=== PATIENT | female | born 1955 | race Caucasian/White ===

== ENCOUNTER → 2016-11-26 | Outpatient (CLI) | payer OTHER ==
--- NOTE | 2016-11-26 16:25 | RAD ---
DATE: 11/26/2016 EXAM: MAMMO STACIE SCREENING BILATERAL HISTORY: 8 cm screening mammogram. COMPARISON: 05/01/2015, 10/30/2014, 10/04/1713 This study was interpreted with the benefit of Computerized Aided Detection (CAD). The breast parenchyma shows scattered fibroglandular densities. Breast parenchyma level B. FINDINGS: Bilateral CC and MLO views as well as tomosynthesis was performed. There are no suspicious microcalcifications, masses or areas of architectural distortion. Findings are stable from the prior mammogram. IMPRESSION: Negative bilateral mammogram. BI-RADS CATEGORY: 1 NEGATIVE RECOMMENDED FOLLOW-UP: 12M 12 MONTH FOLLOW-UP PQRS compliance statement: Patient information was entered into a reminder system with a target due date 11/26/2017 for the next mammogram. Mammography is a sensitive method for finding small breast cancers, but it does not detect them all and is not a substitute for careful clinical examination. A negative mammogram does not negate a clinically suspicious finding and should not result in delay in biopsying a clinically suspicious abnormality. "Our facility is accredited by the [employer] Mammography [employer]."
== END | disposition home or self-care (01) ==
LOC: MAMMO 07:52
PROVIDERS: ATTEND Physician Assistant
DX: Z12.31 Encounter for screening mammogram for malignant neoplasm of breast (principal)
CPT/HCPCS: 77063; G0202; 77067

== ENCOUNTER → 2017-10-21 | Outpatient (CLI) | payer OTHER ==
--- NOTE | 2017-10-21 09:25 | RAD ---
Examination: Right Lower Extremity Venous Doppler Ultrasound History: Right leg swelling, pain Comparison: None Procedure: Martínez scale, color flow 2D and spectal waveform analysis images are obtained with and without compression in the area of the common femoral vein, superficial femoral vein - femoral vein junction, main femoral vein (superficial femoral vein) and popliteal vein. Veins of the proximal calf are also imaged. Findings: There is normal duplex flow, color flow and compressibility of all visualized vein segments. No evidence of deep venous thrombus is present. No obvious popliteal cyst. Impression: No evidence of DVT. Electronically signed by: Wallace Obando MD (10/21/2017 9:22 AM) [id number]
== END | disposition home or self-care (01) ==
LOC: PMG 08:47
PROVIDERS: ATTEND Physician Assistant Medical
DX: M25.461 Effusion, right knee (principal); M79.89 Other specified soft tissue disorders
CPT/HCPCS: 93971

== ENCOUNTER → 2018-01-12 | Outpatient (CLI) | payer OTHER ==
--- NOTE | 2018-01-12 14:12 | RAD ---
DATE: 01/12/2018 EXAM: MAMMO STACIE SCREENING BILATERAL HISTORY: Routine screening COMPARISON: 11/26/2016 This study was interpreted with the benefit of Computerized Aided Detection (CAD). The breast parenchyma shows scattered fibroglandular densities. Breast parenchyma level B. FINDINGS: 2-D and 3-D tomosynthesis imaging was performed in CC and MLO projections. There is a small irregular elongated opacity in the inferior lateral aspect of the right breast as seen on CC stacie image #5, which was not evident on the previous study. It is also visible on right oblique tomosynthesis image #5. It lies approximately 4 cm from the nipple. No other new or enlarging breast densities are seen. Benign type calcifications are noted. No suspicious microcalcifications are evident. IMPRESSION: New small right lateral breast density as described above. Sonographic evaluation is suggested. BI-RADS CATEGORY: 0 INCOMPLETE: NEEDS ADDITIONAL IMAGING EVALUATION AND/OR PRIOR MAMMOGRAMS FOR COMPARISON. RECOMMENDED FOLLOW-UP: ADD ADDITIONAL IMAGING PQRS compliance statement: Patient information was entered into a reminder system with a target due date for the next mammogram. Mammography is a sensitive method for finding small breast cancers, but it does not detect them all and is not a substitute for careful clinical examination. A negative mammogram does not negate a clinically suspicious finding and should not result in delay in biopsying a clinically suspicious abnormality. "Our facility is accredited by the [employer] Mammography [employer]."
== END | disposition home or self-care (01) ==
LOC: MAMMO 09:05
PROVIDERS: ATTEND Physician Assistant
DX: Z12.31 Encounter for screening mammogram for malignant neoplasm of breast (principal)
CPT/HCPCS: 77063; 77067

== ENCOUNTER → 2018-02-03 | Outpatient (CLI) | payer OTHER ==
--- NOTE | 2018-02-03 14:09 | RAD ---
Right breast ultrasound, 02/03/2018: History: Abnormal mammogram The recent mammograms demonstrated a suspicious streaky superficial opacity in the inferolateral aspect of the right breast. Today we performed a targeted ultrasound exam of that region. Heterogeneous fibroglandular shadows are present. No mass or abnormal fluid collection is seen. IMPRESSION: No sonographic correlate could be found for the streaky superficial opacity seen inferolaterally at mammography. This could be a scar or skin related process, not visible on prior mammograms due to technical factors. Mammographic follow-up in 4-6 months is suggested. Breast MR would be a reasonable alternative. BI-RADS 3-probably benign findings
== END | disposition home or self-care (01) ==
LOC: US 12:53
PROVIDERS: ATTEND Physician Assistant
DX: R92.8 Other abnormal and inconclusive findings on diagnostic imaging of breast (principal)
CPT/HCPCS: 76641